=== PATIENT | male | born 1950 | race Caucasian/White ===

== ENCOUNTER 2022-08-27 09:40 | Emergency (ER) | payer MEDICARE ==
[~2022-08-27] VITALS: Ht 177.8 cm; Wt 113.4 kg
--- NOTE | 2022-08-27 09:50 | NUR ---
TO ER BED 3. BIB [facility] 860 IN A SITTING POSITION,C/O FLARE UP OF CHRONIC BACK PAIN, RAN OUT OF HIS OXYCODONE. VITALS ARE WITHIN NORMAL LIMITS, NO RESP DISTRESS NOTED. AWAITING MD ORDERS.
[2022-08-27] MEDS ORDERED: OXYC-133 PO (10:24)
[2022-08-27] MEDS ORDERED: NALO4SPR BNOSTRILS (10:26)
[2022-08-27] MEDS ORDERED: HYDROCODONE/APAP 10/325MG TABLET ONE (10:27)
[2022-08-27] MEDS ORDERED: HYDROCODONE/APAP 10/325MG TABLET PO ONE (10:30)
[2022-08-27] MEDS ORDERED: oxyCODONE/APAP (5/325 MG) 1 UDTAB TABLET ONE (10:37)
[2022-08-27] MEDS ORDERED: oxyCODONE/APAP (5/325 MG) 1 UDTAB TABLET PO ONE (11:00)
[2022-08-27 11:07] VITALS: BP 133/71
--- NOTE | 2022-08-27 11:07 | NUR ---
Patient discharged to home in stable condition. Written and verbal after care instructions given. Patient verbalizes understanding of instruction.
== END 2022-08-27 11:08 | disposition home or self-care (01) ==
LOC: ER 09:43
DX: G89.29 Other chronic pain (principal); M54.50 Low back pain, unspecified; E11.9 Type 2 diabetes mellitus without complications; Z88.8 Allergy status to other drugs, medicaments and biological substances; Z98.890 Other specified postprocedural states; Z79.899 Other long term (current) drug therapy

== ENCOUNTER 2022-08-28 19:50 | Emergency (ER) | payer MEDICARE ==
[~2022-08-28] VITALS: Ht 177.8 cm; Wt 113.4 kg
[2022-08-28 19:50] VITALS: BP 176/99
[~2022-08-28 19:50] MED LIST: NALO4SPR BNOSTRILS; OXYC-133 PO
[2022-08-28] MEDS ORDERED: oxyCODONE/APAP (5/325 MG) 1 UDTAB TABLET PO ONE (20:30)
--- NOTE | 2022-08-28 20:42 | NUR ---
Patient eloped from facility. ER MD notified.
== END 2022-08-28 21:42 | disposition left against medical advice (07) ==
LOC: ER 19:52
DX: G89.29 Other chronic pain (principal); M54.9 Dorsalgia, unspecified; E11.9 Type 2 diabetes mellitus without complications; Z88.8 Allergy status to other drugs, medicaments and biological substances; Z79.899 Other long term (current) drug therapy